=== PATIENT | female | born 1960 | race Caucasian/White ===

== ENCOUNTER 2025-03-13 12:28 | Emergency (ER) | payer BC ==
[~2025-03-13] VITALS: Ht 157.5 cm; Wt 52.2 kg
[2025-03-13 13:23] LABS: BASOPHILS % (AUTO) 0.3 % (0.0-2.0); EOSINOPHILS % (AUTO) 0.1 % (0.0-7.0); HEMOGLOBIN 13.6 g/dL (10.9-14.3); LYMPHOCYTES # (AUTO) 1.7 K/uL (0.8-4.8); LYMPHOCYTES % (AUTO) 12.4 % (20.5-51.5); MEAN CORPUSCULAR HEMOGLOBIN 32.6 uug (24.7-32.8); MEAN CORPUSCULAR HGB CONC 34 g/dL (32.3-35.6); MEAN CORPUSCULAR VOLUME 96.1 fL (75.5-95.3); MONOCYTES # (AUTO) 1.4 K/uL (0.1-1.30); MONOCYTES % (AUTO) 10.1 % (0.0-11.0); NEUTROPHILS # (AUTO) 10.8 K/uL (1.8-8.9); NEUTROPHILS % (AUTO) 77.1 % (38.5-71.5); PLATELET COUNT (AUTO) 230 K/uL (179-408); RED BLOOD CELL COUNT(AUTO) 4.16 MIL/uL (3.63-4.92); RED CELL DISTRIBUTION WIDTH 13.1 % (12.3-17.7); WHITE BLOOD COUNT (AUTO) 13.9 K/uL (3.8-11.8)
[2025-03-13 13:24] LABS: *BILIRUBIN,URIN NEGATIVE (NEGATIVE); *BLOOD, URINE 1+ (NEGATIVE); *CLARITY,URINE CLEAR (CLEAR); *COLOR,URINE YELLOW (YELLOW); *KETONES,URINE 1+ (NEGATIVE); *PROTEIN,URINE NEGATIVE (NEGATIVE); *UROBILINOGEN,URINE 0.2 E.U./dl (NORMAL); LEUKOCYTE ESTERASE ,URINE NEGATIVE (NEGATIVE); NITRITE, URINE NEGATIVE (NEGATIVE); UGLUCOSE NEGATIVE (NEGATIVE)
[2025-03-13 13:26] LABS: DIFFERENTIAL COMMENT 1
[2025-03-13 13:28] LABS: *URINE HCG, QUAL NEGATIVE (NEGATIVE); BACTERIA,URINE FEW /HPF (NONE SEEN); SQUAMOUS EPITHELIAL CELL,UR FEW /HPF (NONE SEEN); URINE AMORPHOUS URATE FEW /HPF; WBC,URINE 0-3 /HPF (0-3)
[2025-03-13 13:32] LABS: CREATININE 0.7 mg/dL (0.6-1.3); POTASSIUM 3.5 mmol/L (3.5-5.1)
[2025-03-13 13:38] LABS: ALBUMIN 3.3 g/dL (3.4-5.0); BILIRUBIN,DIRECT 0.2 mg/dL (0.0-0.2); BILIRUBIN,TOTAL 0.9 mg/dL (0.2-1.0); TOTAL PROTEIN, SERUM 6.9 g/dL (6.4-8.2)
[2025-03-13] MEDS ORDERED: METRONIDAZOLE 500 MG TABLET ONE (15:31)
[2025-03-13] MEDS ORDERED: AMOXICILLIN-CLAVUL 875-125MG TABLET ONE (15:32)
[2025-03-13] MEDS: AMOXICILLIN-CLAVUL 875-125MG TABLET PO ONE (15:37)
[2025-03-13] MEDS: METRONIDAZOLE 500 MG TABLET PO ONE (15:37)
[2025-03-13] MEDS ORDERED: METR500T PO (15:58)
[2025-03-13] MEDS ORDERED: AMOX-430 PO (15:58)
[2025-03-13 16:07] VITALS: BP 117/67; TEMP 98.2; O2SAT 100
== END 2025-03-13 16:11 | disposition home or self-care (01) ==
LOC: ER 12:28
DX: K57.32 Diverticulitis of large intestine without perforation or abscess without bleeding (principal); E78.5 Hyperlipidemia, unspecified
CPT/HCPCS: 36415; 84703; 85025; A4606; A4663